=== PATIENT | male | born 1970 | race Caucasian/White ===

== ENCOUNTER 2022-02-03 20:30 | Observation (INO) ==
[2022-02-03] MEDS ORDERED: 0.9 % Sodium Chloride 1,000 ML IVC ONE (21:27)
[2022-02-03] MEDS ORDERED: diazePAM 10 MG/2 ML SYRINGE IVP STA (21:27)
[2022-02-03] MEDS ORDERED: Ondansetron 4 MG/2 ML VIAL IVP ONE (21:27)
[2022-02-03] MEDS ORDERED: Isovue-370 500 ML BOTTLE IVP ONE (21:30)
[2022-02-03 21:40] LABS: Basophils % 0.1 %; Hematocrit 49.2 % (37.5-50.1); Hemoglobin 16.8 g/dL (12.9-16.9); Immature Granulocytes % 0.4 % (0-4); Lymphocytes # 0.7 K/mcL (0.6-4.6); Lymphocytes % 5.2 %; Mean Corpuscular HGB Conc 34.1 g/dL (31.6-35.5); Mean Corpuscular Volume 90.8 fL (83.0-100.0); Mean Platelet Volume 10.4 fL (9.4-12.4); Monocytes # 0.4 K/mcL (0.0-1.3); Neutrophils # 12.8 K/mcL (1.6-8.9); Platelet Count 282 K/mcL (140-400); Red Blood Count 5.42 M/mcL (4.19-5.50); Red Cell Distribution Width 12.7 % (11.5-14.5); Segmented Neutrophils % 91.3 %
[2022-02-03 21:52] LABS: BUN/Creatinine Ratio 13 (6-26); Blood Urea Nitrogen 12 mg/dL (6-20); Calcium 8.6 mg/dL (8.6-10.3); Carbon Dioxide 22 mEq/L (23-29); Chloride 107 mEq/L (98-107); Ethanol < 10 mg/dL (Less than 10); Glucose 166 mg/dL (70-105); Osmolality,Calculated 296 (280-300); Potassium 3.7 mEq/L (3.5-5.1); Sodium 141 mEq/L (136-145); eGFR For African Americans > 60 (> 60); eGFR For Non-African Americans > 60 (> 60)
[2022-02-03 21:53] LABS: Troponin I < 0.03 ng/mL (< 0.04)
[2022-02-03 22:01] LABS: INR 1.1; Prothrombin Time 12.1 Seconds (9.4-12.1)
[2022-02-03] MEDS ORDERED: diazePAM 10 MG/2 ML SYRINGE IVP ONE (23:23)
[2022-02-03] MEDS ORDERED: Metoclopramide 10 MG/2 ML VIAL IVP ONE (23:23)
[2022-02-03 23:31] LABS: Bilirubin,Urine Negative (Negative); Blood,Urine Negative (Negative); Clarity,Urine Clear (Clear); Color,Urine Light-Yellow (Yellow); Glucose,Urine (UA) 50 mg/dL (Normal); Ketones,Urine 10 mg/dL (Negative); Leukocyte Esterase,Urine Negative (Negative); Mucus,Urine Few per lpf (None-Few); Nitrite,Urine Negative (Negative); PH,Urine 7.5 pH Units (5.0-8.0); Protein,Urine Trace mg/dL (Neg-Trace); RBC,Urine 0-3 per hpf (0-3); Specific Gravity,Urine > 1.030 (1.010-1.025); Squamous Epithelial Cell,Urine Few per hpf (None-Few); Urobilinogen,Urine Normal (Normal); WBC,Urine 0-3 per hpf (0-3)
[2022-02-03 23:41] LABS: Amphetamine Screen,Urine Negative ng/mL (Cutoff=1000); Barbiturate Screen,Urine Negative ng/mL (Cutoff=200); Benzodiazepines Screen,Urine Negative ng/mL (Cutoff=200); Cannabinoid Screen,Urine Negative ng/mL (Cutoff = 50); Cocaine Screen,Urine Negative ng/mL (Cutoff= 300); Opiate Screen,Urine Negative ng/mL (Cutoff=300); Phencyclidine Screen,Urine Negative ng/mL (Cutoff=25)
[2022-02-04] MEDS ORDERED: Melatonin 3 MG TABLET PO PRN (00:50)
[2022-02-04] MEDS ORDERED: Naloxone 0.4 MG/ML INJ IVP PRN (00:50)
[2022-02-04] MEDS ORDERED: Acetaminophen 325 MG TABLET PO PRN (00:50)
[2022-02-04] MEDS ORDERED: Perflutren Lipid Microsphere 1.3 ML in 0.9 % Sodium Chloride 8.7 ML IVP PRN (00:54)
[2022-02-04] MEDS ORDERED: *HR* Promethazine 25 MG/ML VIAL IM PRN (01:04)
[2022-02-04 03:05] LABS: Basophils % 0.1 %; Hematocrit 45.8 % (37.5-50.1); Hemoglobin 15.9 g/dL (12.9-16.9); Immature Granulocytes % 0.5 % (0-4); Lymphocytes # 1.2 K/mcL (0.6-4.6); Lymphocytes % 7.8 %; Mean Corpuscular HGB Conc 34.7 g/dL (31.6-35.5); Mean Corpuscular Hemoglobin 31.2 pg (28.0-33.3); Mean Corpuscular Volume 89.8 fL (83.0-100.0); Mean Platelet Volume 10.2 fL (9.4-12.4); Monocytes # 0.6 K/mcL (0.0-1.3); Monocytes % 4.1 %; Neutrophils # 13.3 K/mcL (1.6-8.9); Platelet Count 278 K/mcL (140-400); Red Cell Distribution Width 12.6 % (11.5-14.5); Segmented Neutrophils % 87.5 %; White Blood Count 15.3 K/mcL (4.3-11.1)
[2022-02-04 03:14] LABS: INR 1.1; Prothrombin Time 12.1 Seconds (9.4-12.1)
[2022-02-04 03:26] LABS: BUN/Creatinine Ratio 12 (6-26); Blood Urea Nitrogen 9 mg/dL (6-20); Calcium 8.3 mg/dL (8.6-10.3); Carbon Dioxide 23 mEq/L (23-29); Chloride 108 mEq/L (98-107); Chol/HDL Ratio 5.7 (0-4.9); Cholesterol 241 mg/dL (< 200); Glucose 138 mg/dL (70-105); HDL Cholesterol 42 mg/dL (40-59); LDL Cholesterol,Calculated 179 mg/dL (< 100); Osmolality,Calculated 289 (280-300); Phosphorous 3.4 mg/dL (2.7-4.5); Potassium 3.7 mEq/L (3.5-5.1); Sodium 139 mEq/L (136-145); Triglycerides 102 mg/dL (< 150); eGFR For African Americans > 60 (> 60); eGFR For Non-African Americans > 60 (> 60)
[2022-02-04] MEDS: Ringers Solution, Lactated 1,000 ML IVC SCH ×3 (03:44→20:05)
[2022-02-04] MEDS: Aspirin Enteric Coated 81 MG Tablet PO SCH (09:51)
[2022-02-04] MEDS: Ondansetron 4 MG/2 ML VIAL IVP PRN ×2 (13:15→20:06)
[2022-02-04] MEDS ORDERED: *HR* Enoxaparin 30 MG/0.3 ML SYRINGE SQ SCH (13:30)
[2022-02-05] MEDS: Ringers Solution, Lactated 1,000 ML IVC SCH ×2 (04:08→11:26)
[2022-02-05] MEDS ORDERED: *HR* Enoxaparin 40 MG/0.4 ML SYRINGE SQ SCH (06:00)
[2022-02-05] MEDS ORDERED: predniSONE 20 MG TABLET PO ONE (07:33)
[2022-02-05] MEDS: Aspirin Enteric Coated 81 MG Tablet PO SCH (08:14)
[2022-02-05 10:58] VITALS: BP 128/80; PULSE 73; TEMP 97.9; O2SAT 94
== END 2022-02-05 15:05 | disposition home or self-care (01) ==
LOC: 3BNU 20:30 → EMEROOARM 20:30 → SUATTDRO 02-04 00:14 → 3BNU 02-04 00:47
PROVIDERS: ADMIT Internal Medicine; ATTEND Internal Medicine